=== PATIENT | male | born 1985 | race Caucasian/White ===

== ENCOUNTER 2019-02-17 06:22 | Day surgery (SDC) | payer OTHER ==
[2019-02-17] VITALS (13 sets, daily range): BP systolic 121–140; BP diastolic 76–84; PULSE 68–88; RESP 12–19; Ht 172.7 cm; Wt 88.0 kg
[~2019-02-17] VITALS: Ht 172.7 cm; Wt 88.0 kg
[2019-02-17] MEDS ORDERED: POLYMYXIN/BACITRACIN 1L IRRIG ONE (09:04)
--- NOTE | 2019-02-17 09:11 | PREAC ---
Date/Time of Note Date/Time of Note DATE: 02/17/19 TIME: 09:10 Anesthesia Eval and Record Evaluation Time Pre-Procedure Interview DATE: 02/17/19 TIME: 09:10 Age 33 Sex male NPO: 8 hrs Preoperative diagnosis INCARCERATED VENTRAL HERNIA Planned procedure LAP INCARCERATED VENTRAL HERNIA REPAIR WITH MESH Past Medical History Past Medical History: None Surgery & Anesthesia Issues No known issue Meds Anticoagulation: No Beta Arcadio within 24 hr: No Reason Beta Arcadio not given: Pt. not on B-Arcadio No Active Prescriptions or Reported Meds Current Medications Sodium Chloride 1,000 ml @ 75 mls/hr [id number] IV ; Start 02/17/19 at 11:00; Stop 02/17/19 at 23:00 Cefazolin Sodium/ Dextrose 50 ml @ 100 mls/hr PRE-OP IVPB ; Start 02/17/19 at 11:00 Meds reviewed: Yes Allergies Coded Allergies: No Known Drug Allergies (Verified Allergy, Unknown, 02/17/19) Allergies Reviewed: Yes Labs/Studies Labs Reviewed: Reviewed by anesthesiologist Result Diagram: 02/17/1905 02/17/19 0705 Laboratory Tests 02/17/19 07:05 test: Negative Pre-procedure Exam Last vitals Vital Signs Date Temp Pulse Resp B/P (MAP) Pulse Ox O2 O2 Flow FiO2 Time Delivery Rate 02/17/19 98.3 77 18 126/80 97 Room Air 07:15 (95) Airway: Adequate mouth opening, Adequate thyromental dist Mallampati: Mallampati II Teeth: Normal Lung: Normal Heart: Normal ASA Physical Status ASA physical status: 1 Emergency: None Planned Anesthetic General/MAC: ETT Nerve block: TAP (bilateral) Planned Pain Management Single shot nerve block, Parenteral pain med Pre-operative Attestations Prior to commencing anesthesia and surgery, the patient was re-evaluated, there was verification of: *The patient's identity *The results of appropriate recent lab work and preoperative vital signs *The above evaluation not changing prior to induction *Anesthetic plan, risk benefits, alternative and complications discussed with p atient/family; questions answered; patient/family understands, accepts and wishes to proceed. Nakul Bernal M.D. Feb 17, 2019 09:11
[2019-02-17] MEDS ORDERED: ONDANSETRON 4 MG INJ ONE (09:12)
[2019-02-17] MEDS ORDERED: PROPOFOL 20 ML ONE (09:12)
[2019-02-17] MEDS ORDERED: FENTAnyl 50 MCG/ML VIAL ONE (09:12)
[2019-02-17] MEDS ORDERED: CEFAZOLIN 1 GM INJ ONE (09:12)
[2019-02-17] MEDS ORDERED: MIDAZOLAM 1 MG/ML 2 ML INJ ONE (09:12)
[2019-02-17] MEDS ORDERED: GLYCOPYRROLATE 0.4 MG INJ ONE (09:12)
[2019-02-17] MEDS ORDERED: DEXAMETHASONE 4 MG/ML 5 ML INJ ONE (09:12)
[2019-02-17] MEDS ORDERED: ROCURONIUM 50 MG INJ ONE (09:12)
[2019-02-17] MEDS ORDERED: NEOSTIGMINE 3 MG/3 ML SYRINGE ONE (09:12)
[2019-02-17] MEDS ORDERED: ROPIVACAINE 0.5 % 30 ML VIAL ONE (09:22)
[2019-02-17] MEDS ORDERED: LABETALOL HCL 20MG INJ IV PRN (09:30)
[2019-02-17] MEDS ORDERED: MEPERIDINE 25 MG INJ IV PRN (09:30)
[2019-02-17] MEDS ORDERED: OXYCODONE/ACETAMINOPHEN (5/325) TAB PO PRN ×2 (09:30)
[2019-02-17] MEDS ORDERED: TRIMETHOBENZAMIDE 100 MG/ML VIAL IM PRN (09:30)
[2019-02-17] MEDS ORDERED: EPHEDrine SULFATE 50 MG/5 ML SYG IV PRN (09:30)
[2019-02-17] MEDS ORDERED: IPRATROPIUM (NEB) 0.5 MG/2.5 ML AMP HHN PRN (09:30)
[2019-02-17] MEDS ORDERED: FENTAnyl 50 MCG/ML VIAL IV PRN ×3 (09:30)
[2019-02-17] MEDS ORDERED: MIDAZOLAM 1 MG/ML 2 ML INJ IV PRN (09:30)
[2019-02-17] MEDS ORDERED: DIPHENHYDRAMINE 50 MG INJ IV PRN (09:30)
[2019-02-17] MEDS ORDERED: ALBUTEROL 0.083% (NEB) 2.5 MG/3 ML AMP HHN PRN (09:30)
[2019-02-17] MEDS ORDERED: hydrALAzine 20 MG INJ IV PRN (09:30)
[2019-02-17] MEDS ORDERED: HYDROmorphONE 1 MG/5 ML IV SYRINGE IV PRN ×3 (09:30)
[2019-02-17] MEDS ORDERED: ONDANSETRON 4 MG INJ IV PRN (09:30)
[2019-02-17] MEDS ORDERED: POLYMYXIN/BACITRACIN 1L IRRIG IRR ONE (09:36)
--- NOTE | 2019-02-17 10:09 | OPR ---
Date/Time of Note Date/Time of Note DATE: 02/17/19 TIME: 10:02 Operative Report Procedure Date: Feb 17, 2019 Preoperative Diagnosis incarcerated ventral hernia Postoperative Diagnosis same Operation/Procedure Performed 1. laparoscopic incarcerated ventral hernia 2. implantation of polypropylene 15 x 15 cm mesh into the abdomen 3. laparoscopic lysis of adhesions Surgeon see signature line Smelter Liner none Anesthesia Type: general Estimated Blood Loss: 0 - 10 ml's Transfusion none Specimen none Grafts/Implants none Complications none Pt Condition Post Procedure: stable Indications This is a 33-year-old male with an incarcerated ventral hernia. He requires surgical repair. Risks alternatives benefits and percent were discussed the patient. Patient expressed understanding and consents to the operation. Procedure Description Patient is taken to the OR and prepped and draped in usual sterile fashion. Surgical time was performed. IV antibiotics were given. Left upper quadrant 5 mm transverse incision was made with a 15 blade. Using a 5 mm optical trocar optical entry is performed. Pneumoperitoneum is established. The left flank 12 mm optical trochars placed under direct visualization. Left lower quadrant 5 mm optical trochars placed under direct position. Upon initial inspection there is incarcerated hernia contents. Laparoscopic lysis of adhesions was performed with laparoscopic harmonic. The hernia contents were then lysed and then manually reduced. The hernia defect is identified and fascial edges are freshened. The hernia defect is then closed primarily using #1 Vicryl with Endo Close and laparoscopic techniques. After primary closure with interrupted #1 Vicryl of the ventral hernia defect underlay mesh with approximate 4-5 centers coverage in all directions was secured in place with secure strap. The mesh that uses a 15 x 15 cm polypropylene mesh. Good hemostasis was established. All ports were removed under direct position. Skin was closed and skin will. A tap block was provided by the anesthesiology at the beginning the case. Dry dressings were applied. Mazin STARKS Feb 17, 2019 10:09
[2019-02-17] MEDS ORDERED: HYDROCODONE/APAP (5/325) TAB PO ONE (10:30)
[2019-02-17] MEDS ORDERED: CEFAZOLIN 2 GM/50 ML (PMX) 50 ML IVPB SCH (11:00)
[2019-02-17] MEDS ORDERED: SOD CHLORIDE 0.9% 1,000 ML IV SCH (11:00)
--- NOTE | 2019-02-18 12:50 | PAC ---
Date/Time of Note Date/Time of Note DATE: 02/18/19 TIME: 12:50 Post-Anesthesia Notes Post-Anesthesia Note Last documented vital signs Vital Signs Date Temp Pulse Resp B/P (MAP) Pulse Ox O2 O2 Flow FiO2 Time Delivery Rate 02/17/19 97.7 76 18 121/81 97 Room Air 11:26 (94) 02/17/19 4.0 10:35 Activity: WNL Respiratory function: WNL Cardiovascular function: WNL Mental status: Baseline Pain reasonably controlled: Yes Hydration appropriate: Yes Nausea/Vomiting absent: Yes Nakul Bernal M.D. Feb 18, 2019 12:50
== END 2019-02-17 12:46 | disposition home or self-care (01) ==
LOC: SDS 06:22
PROVIDERS: ATTEND Surgery
DX: K43.9 Ventral hernia without obstruction or gangrene (principal)
CPT/HCPCS: 49653; 80053; 85025; 85610; 85730; J0690; J1100; J1170; J2250; J2405; J2710; J2795; J3010; Z7512; Z7610